=== PATIENT | male | born 1960 | race Caucasian/White ===

== ENCOUNTER 2019-01-12 08:45 | Day surgery (SDC) | payer OTHER ==
[2019-01-12] MEDS ORDERED: MIDAZOLAM 1 MG/ML 2 ML INJ ×2 (11:38)
[2019-01-12] MEDS ORDERED: FENTAnyl 50 MCG/ML VIAL (11:38)
== END 2019-01-12 17:45 | disposition home or self-care (01) ==
LOC: GIL 08:45
DX: Z12.11 Encounter for screening for malignant neoplasm of colon (principal); K64.4 Residual hemorrhoidal skin tags; K57.30 Diverticulosis of large intestine without perforation or abscess without bleeding
CPT/HCPCS: 45378